=== PATIENT | male | born 1990 | race Caucasian/White ===

== ENCOUNTER 2022-11-23 07:02 | Emergency (ER) | payer MEDICAID ==
[~2022-11-23] VITALS: Ht 175.3 cm; Wt 88.6 kg
[~2022-11-23 07:02] MED LIST: IBUP-1574 PO
[2022-11-23 07:06] VITALS: BP 121/76
[2022-11-23] MEDS ORDERED: TRAM50TA2 PO (11:52)
== END 2022-11-23 08:29 | disposition home or self-care (01) ==
LOC: ER 07:03
DX: S62.327A Displaced fracture of shaft of fifth metacarpal bone, left hand, initial encounter for closed fracture (principal); F15.90 Other stimulant use, unspecified, uncomplicated; Z72.89 Other problems related to lifestyle; Z79.899 Other long term (current) drug therapy; W22.8XXA Striking against or struck by other objects, initial encounter; Y93.89 Activity, other specified; Y92.89 Other specified places as the place of occurrence of the external cause; Y99.8 Other external cause status
CPT/HCPCS: 29125; 73130; 99283; A6449